=== PATIENT | female | born 1950 | race Caucasian/White ===

== ENCOUNTER → 2018-12-22 | Day surgery (SDC) | payer MEDICARE, OTHER ==
[~2018-12-22] MED LIST: EPINEPHRINE HCL 1:1000 1ML 1 MG/ML AMP ONE; FENTANYL CITRATE/PF 100MCG/2 ML INJ ONE; LIDOCAINE HCL 2% LOCAL INJ 5 ML SDV VIAL INJ ONE; MIDAZOLAM HCL 2 MG/2 ML VIAL ONE; ONDANSETRON HCL INJ 2MG/ML 2ML 2 MG/ML VIAL ONE; PROPOFOL IV EMULSION 10 MG/ML 20 ML VIAL ONE; SEVOFLURANE INHAL SOLN 250 ML PEN BTL ONE
--- OUTSIDE RECORDS SUMMARY | 2018-12-22 09:49 | XMS REPORT ---
Author [facility] Address Unknown Phone Unavailable Care Team Providers Care School Lunch Manager Name Role Phone Goran Rawls Unavailable Unavailable Problems This patient has no known problems. Allergies, Adverse Reactions, Alerts This patient has no known allergies or adverse reactions. Medications This patient has no known medications. Results Test Description Test Time Test Comments Text Results Atomic Results Result Comments [facility] 2018-12-21 15:18:00 [place] [id number] RADIOLOGY SERVICES REPORT Name: MARY RAINEY Acct Number: [id number] :1950 Age:68 Sex:F Ord Phys: Goran Rawls MD Unit Number: [id number] [place] [facility] [address]: Status: REG REF RAD Exam Date: 12/21/18 EXAM DESCRIPTION: MRI - [facility] - 12/21/2018 3:00 pm CLINICAL HISTORY: ICD H90.3 right hearing loss COMPARISON: None. TECHNIQUE: High-resolution axial coronal magnetic resonance imaging the internal auditory canals performed. 20 cc MultiHance administered intravenously FINDINGS: A cerebellar pontine angle mass is not seen. The seventh and eighth nerves appear unremarkable. No abnormal enhancement is seen. Brainstem is unremarkable Mastoids and middle ear clear IMPRESSION: Unremarkable MRI internal auditory canal Signed By: Andrew Taylor MD Signed AT: 12/21/18 1518 Creatinine [Mass/volume] in Serum or Plasma 2018-12-21 11:01:00 Creatinine [Mass/volume] in Serum or Plasma (test ahcn=7334-4) 0.64 mg/dL 0.55-1.3 Glomerular Filtration Rate (test code=GFR) > 90 =/>90 FOR CHRONIC KIDNEY DISEASE: GFR STAGE DESCRIPTION=/>90 STAGE 1 NORMAL--OR-- MINIMAL KIDNEY DAMAGE WITH NORMAL GFR 60-89 STAGE 2 MILD DECREASE IN GFR 30-59 STAGE 3 MODERATE DECREASE IN GFR 15-29 STAGE 4 SEVERE DECREASE IN GFR <15 STAGE 5 KIDNEY FAILURE The Glomerular Filtration Rate (GFR) has been calculated using the IDMS-Traceable MDRD Study Equation. CALL [id number] W/ RESULTS
--- NOTE | 2018-12-22 11:15 | Pre Op History & Physical ---
ANTICIPATED DATE OF SURGERY: December 22, 2018 CHIEF COMPLAINT: Right-sided hearing loss and right tinnitus for 3 weeks. HISTORY OF PRESENT ILLNESS: This 68 years old female experienced sudden onset of right-sided tinnitus with decreased hearing. The patient denies any vertigo. The patient denies any extremity weakness. No recent upper respiratory tract infection. The patient has no history of ear problems before. She has no surgery to the ear before. The patient was seen in the Urgent Care and has no recent treatment. An audiogram that was done showed the patient has right moderate sensorineural hearing loss. Left side has normal pure tone. Speech discrimination of 100% bilaterally. At the time of dictation, the patient is still pending the MRI of IAC report. REVIEW OF SYSTEMS: System review showed no recent cardiovascular, respiratory, or GI problem. PAST MEDICAL HISTORY: The patient has no significant medical problem. PAST SURGICAL HISTORY: The patient has no previous surgery. ALLERGIES: SHE HAS NO KNOWN ALLERGY TO MEDICATIONS. MEDICATIONS: She is on Prilosec. SOCIAL HISTORY: She is a nonsmoker and nondrinker. FAMILY HISTORY: Noncontributory. PHYSICAL EXAMINATION: VITAL SIGNS: On examination, the patient's vital signs were within normal limits. HEENT: Ear exam showed normal tympanic membranes bilaterally. The Blancas test lateralizes to the left. Nasal exam showed deviated nasal septum on the right side about 30%. Oropharynx and oral cavity showed 1+ tonsils bilaterally with Mallampati level II. NECK: Showed no lymph node or thyroid palpable. CHEST: Showed good air entry bilaterally. CARDIOVASCULAR: Showed S1, S2. No murmur noted. SPECIALTY DEVELOPMENT CONSULTANT: Show cranial nerves II through XII were within normal limits. HISTORY OF PRESENT ILLNESS: Ms. Ocampo has right sudden sensorineural hearing loss. Pending the results of the MRI of the IAC. If it was negative, the patient would suggest to have a myringotomy and tubes on the right with Decadron installation into the right ear and other necessary procedure. The complication of procedure includes, but not limited to bleeding, infection, TM perforation, persistent drainage from the ear, hearing loss, persistence of the tinnitus. Alternatives will be continued observation, systemic steroid therapy, myringotomy and tubes in the office setting, and then Decadron installation. The patient has elected to undergo surgical procedure. MD INGRID Hutson/JAMESL /[id number] cc: [facility]
[2018-12-22 13:00] VITALS: BP 132/73
--- NOTE | 2018-12-28 15:14 | Operative Report ---
DATE OF PROCEDURE: 12/22/2018 SURGEON: Goran Rawls MD CHIEF COMPLAINT: Right-sided sensorineural hearing loss. POSTOPERATIVE DIAGNOSIS: Right-sided sensorineural hearing loss. OPERATIVE PROCEDURES: Myringotomy and tubes in the right ear with instillation of Decadron to the right ear and examination under anesthesia of the left ear. ANESTHESIA: Anesthesiology Group. INDICATIONS: This 68-year-old female has a 3-week history of decreased hearing on the right ear with increased tinnitus. The patient has no trauma to the area. The patient has no history of upper respiratory tract infection. The patient has no family history or personal history for autoimmune diseases. Examination of both ears was normal. An audiogram that was done showed the patient has more to severe sensorineural hearing loss on the right side with normal pure tone on the left with speech discrimination of 100% bilaterally. Her tympanograms were normal. The patient has a working diagnosis of right . MRI of the skull base did not show any IAC abnormality. It was decided that right myringotomy and tubes with Decadron and examination under anesthesia of the left ear and other necessary procedure will be beneficial for her. DESCRIPTION OF PROCEDURE: The patient was taken to the operating room, put under general anesthesia, LMA airway created. The right ear was examined. Ear canal was debrided. A piece of wax was noted against the TM, this was removed. A myringotomy was done in the anterior-inferior quadrant. No effusion was noted in the middle ear cleft on the right side. An Edwards grommet tube was inserted. Decadron 24 mg/mL, 1 mL was instilled into the middle ear via the PE tube. Small bleeding area was noted in the canal, this was controlled using . The left ear was examined. The ear canal was debrided. No abnormality was noted. The TM was not disturbed. The patient tolerated the above procedure well with minimal blood loss. She was able to be transferred to recovery room in a stable condition. Goran Rawls MD DKH/MODL /[id number]
== END | disposition home or self-care (01) ==
LOC: OR 09:46
PROVIDERS: ATTEND Otolaryngology Otolaryngology/Facial Plastic Surgery
DX: H90.5 Unspecified sensorineural hearing loss (principal)
CPT/HCPCS: J0171; J2001; J2250; J2405; J3010